=== PATIENT | female | born 1980 | race African-American/Black ===

== ENCOUNTER 2023-03-14 14:25 | Outpatient (CLI) | payer BC, MEDICAID, SELFPAY ==
--- NOTE | 2023-03-14 14:35 | ECG_ITS ---
Measurements Intervals [place] Rate: 66 P: 24 SC: 156 QRS: -6 QRSD: 77 T: 0 QT: 386 QTc: 407 Interpretive Statements SINUS RHYTHM VOLTAGE CRITERIA FOR LVH BORDERLINE R WAVE PROGRESSION, ANTERIOR LEADS BORDERLINE T WAVE ABNORMALITY- ANTERIOR LEADS BASELINE ARTIFACT- I, II, III, AVR, AVL, AVF BORDERLINE ECG NO PREVIOUS ECG AVAILABLE FOR COMPARISON Electronically Signed On 03-14-2023 16:25:19 EVENT MANAGEMENT CONSULTANT by Jonathan Jacobs D.O.
[2023-03-14 14:50] LABS: Hematocrit 36.1 % (37.0-47.0); Hemoglobin 10.6 g/dL (12.0-15.0); Mean Corpuscular HGB Conc 29.4 g/dl (32-36); Mean Corpuscular Hemoglobin 25.7 pg (26-34); Mean Corpuscular Volume 87.6 fl (80-100); Mean Platelet Volume 8.6 fl (7.4-10.4); Platelet Count Result 413 k/mm3 (150-375); Red Blood Count 4.12 M/mm3 (4.2-5.4); Red Cell Distribution Width 22.6 % (11.5-14.5)
== END 2023-03-14 14:26 | disposition home or self-care (01) ==
LOC: ANHSURGERY 14:30
PROVIDERS: PCP Internal Medicine; Visit Provider Obstetrics & Gynecology
DX: Z01.818 Encounter for other preprocedural examination (principal); I10 Essential (primary) hypertension; N85.2 Hypertrophy of uterus
CPT/HCPCS: 36415; 85027; 93005

== ENCOUNTER 2023-03-16 01:22 | Day surgery (SDC) | payer BC, MEDICAID, SELFPAY ==
[2023-03-06 10:35] VITALS: BMI 36.6
--- NOTE | 2023-03-06 10:45 | PC.NURSE ---
Report to the Outpatient Waiting Room, entrance under the green pavilion located off [facility], at time 06:00AM on date 03-16-23. Planned Procedure Time: 07:30AM. Time changes happen often and if your time is changed the preop area will call you the afternoon before. - You and your visitor will be asked to self-screen and do not enter if you have any COVID symptoms. - A mask is optional within the hospital at this time. Patients may have clear liquids (water, carbonated beverages, clear teas, apple juice) until 3 hours prior to surgery (04:30AM) with a maximum of 20 ounces. - No food from midnight until time of surgery Take the following medications with a SIP of water the morning of surgery: METOPROLOL DO NOT STOP ANY OF YOUR OTHER PRESCRIPTION MEDICATIONS PRIOR TO SURGERY ?EXCEPT THE FOLLOWING Medications to discontinue per physician IRON SUPPLEMENT Date to take last dose 03-12-23 Please no make-up, nail kinyarwanda, hairspray, perfume, deodorant, or body powder the day of surgery. No jewelry (including any body piercings) or valuables the day of surgery, leave them at home. Please take a shower or bath the night before, or the morning of, surgery with an antibacterial soap. Wear comfortable, loose fitting clothing. - Jewelry must be removed prior to entering the operating room. Rings and piercings that are not removed may be cut off. - The hospital will not accept responsibility for valuables. - Please leave all valuables, including medications, at home the day of surgery. If you are going home after surgery, a licensed pick up and delivery driver must drive you home. - NO public transportation without another adult if you receive anesthesia. - We recommend that an adult stay with you for 24 hours following discharge. - We also recommend that you do not drive, make important decision, drink alcoholic beverages, or take any drugs that were not prescribed by your health care provider for at least 24 hours after your discharge time. Follow any additional instructions given to you from your surgeon. If you or anyone in your household have experienced Covid symptoms in the past week, please notify your surgeon or the nurse liaison at the phone number below for possible testing. Telephone instructions given to PATIENT and asked if any additional questions and then verbalized understanding. Patient advised to call surgeon office or pre surgery nurse liaison [phone] if any additional questions.
[2023-03-16] VITALS (8 sets, daily range): BP systolic 140–168; BP diastolic 85–93; PULSE 58–73; RESP 18–21; TEMP 36.4; O2SAT 94–100
[2023-03-16] MEDS: ACETAMINOPHEN 500 MG TABLET 1000 MG PO (07:15)
[2023-03-16] MEDS: LACTATED RINGERS 1,000 ML 30 ML IV CONT (07:20)
--- NOTE | 2023-03-16 07:20 | WPDANESEPPF ---
Anes - Initial Pre Proc Eval Procedure: Operation Date: 03/16/23 08:15 Proposed Procedures p Hysteroscopy Dilation and Curettage Bre Endometrial Ablation - Kostas De MD s Laparoscopic Bilateral Salpingectomy - Kostas De MD Date/Time: 03/16/23 07:20 Surgeon: Kostas De MD Pre Op Diagnosis: uterine hypertrophy Patient Data Age: 42 Gender: F Height: 1.65 m Weight: 100 kg Allergies Allergy/AdvReac Type Severity Reaction Status Date / Time No Known Allergies Allergy Mild Verified 03/16/23 07:14 Home Medications Medication Instructions Recorded Confirmed Type metoprolol succinate 100 mg 100 mg PO DAILY 12/22/21 03/16/23 History tablet,extended release 24 hr losartan 100 mg tablet 50 mg PO DAILY 11/21/22 03/16/23 History norethindrone 1 mg-ethinyl 1 tablet PO DAILY #84 tabs 02/24/23 03/16/23 Rx estradiol 35 mcg tablet (Nortrel) Excedrin Migraine 2 caplet PO PRN PRN Migraine 03/06/23 03/16/23 History Headache ferrous sulfate 325 mg (65 mg 325 mg PO DAILY 03/06/23 03/16/23 History iron) tablet valacyclovir 500 mg tablet 500 mg PO Q12H PRN hsv 03/06/23 03/06/23 History (Valtrex) Patient hx anesthesia problems: none Family hx anesthesia problems: none Results Review: All pre-operative results and documents have been reviewed as part of the pre-operative evaluation. 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 Hypertension Migraines Screening mammogram, encounter for Uterine fibroid Surgical History Surgical History History of colposcopy with cervical biopsy 12/09/04 benign 07/08/10 benign History of elective 2000 2002 2006 Family History Family History Grandparent Diabetes mellitus maternal grandmother Hypertension maternal grandmother Mother Hypertension Social History Social History Smoking status: Never smoker Second hand tobacco smoke exposure: No Alcohol intake: never Substance use: never Substance use type: does not use Lack of Transportation: No Lack of Food: Never True Current Housing: I Have Housing Concerned About Future Housing: No Difficulty Paying Gas/Electric Bills: No Difficulty Paying for Meds: No Currently Unemployed: No Education: Trade/Vocational Certificate Difficulty w/ Childcare or Family Care: No Living arrangements: with family Additional living arrangements comments: single Occupation/Education: occupation Additional occupation/education comments: paraprofessional Gender identity (if verbalized by the patient): Female Sexual Orientation (if Verbalized by the Patient): Straight or Heterosexual Spiritual care concerns: No Anes - Eval Final PreProcedure Day of Procedure 03/16/23 07:20 Patient weight: obese Heart: regular rate and rhythm Lungs: clear to auscultation Airway: Mallampati scale class II Neurological: alert and oriented Last oral intake: >/= 8 hours ASA classification: III Emergent: no Anesthetic plan: proceed Anesthesia type and monitoring: general ETT and standard monitoring Results Review: All pre-operative results and documents have been reviewed as part of the pre-operative evaluation. Informed Consent: The patient's anesthetic plan and its attendant risks and benefits were discussed with the patient/family/POA. Questions were solicited and answers provided to the satisfaction of the patient/family/POA.
[2023-03-16] MEDS: KETOROLAC 15 MG/ML VIAL (*BKC) IV PUSH (07:23)
--- NOTE | 2023-03-16 07:25 | WPDHPUPDATE1 ---
History and Physical Update Update Date/Time: 03/16/23 07:25 History and Physical has been reviewed, including an updated exam of the patient. There are NO changes in the patient's condition. Risks, benefits, and alternatives have been discussed and questions answered. Patient agrees to proceed with procedure.
[2023-03-16] MEDS: ceFAZolin 2 GM/D5W 50 ML 2 GM/50 ML BAG IVPB (08:11)
--- NOTE | 2023-03-16 09:27 | P.OP_ITS ---
Procedure Note - Detailed Date of Procedure 03/16/23 Pre-op Diagnosis 1. Menometrorrhagia 2. Dysmenorrhea 3. Fibroid uterus 4. Undesired fertility Post-op Diagnosis Same Procedure Performed 1. Hysteroscopy with uterine curettings 2. Endometrial ablation 3. Laparoscopic bilateral salpingectomy Surgeon Kostas De MD Anesthesia General Findings Endometrial cavity enlarged and thickened tissue, no fibroids abutting cavity. Laparoscopic exam revealed ovaries without abnormality with enlarged multi fibro id uterus Description of Procedure Patient prepped and draped in usual manner for this procedure. Cervical instruments were placed for uterine mobility intention was placed the abdominal wall. Trocars were placed under direct visualization and instruments were placed as well. Tubes were identified and mesial salpinx was cauterized and cut with the Harmonic scalpel and there was no bleeding. Tubes were both removed, mesial salpinx area again inspected with no bleeding, gas was allowed to escape instruments removed and trocar sites were approximated use add for 0 Monocryl. Cervix was dilated to allow the hysteroscope to be placed which revealed thickened tissue and enlarged cavity though no fibroids penetrated into the cavity. Curettings were obtained and the Bre instrument was placed, cavity assessment performed, instrument activated. At this point after the cycle was performed patient was sent to recovery room in stable condition. Estimated Blood Loss -25.0 Urine Output -50.0 Drains No Packing No Pathology Yes Complications No immediate complications Condition Stable Disposition PACU [facility] Billing Surgery - Charge Forward: Surgery Billing
== END 2023-03-16 10:53 | disposition home or self-care (01) ==
PROVIDERS: PCP Internal Medicine; Visit Provider Obstetrics & Gynecology
PROC: 0U5B8ZZ Destruction of Endometrium, Via Natural or Artificial Opening Endoscopic (ICD-10-PCS; CPT 58563; principal; 2023-03-16 08:15)
PROC: (CPT 49320; 2023-03-16 08:15)
DX: N92.1 Excessive and frequent menstruation with irregular cycle (principal); N94.6 Dysmenorrhea, unspecified; Z30.2 Encounter for sterilization; I10 Essential (primary) hypertension; B00.9 Herpesviral infection, unspecified; E66.9 Obesity, unspecified; Z68.36 Body mass index [BMI] 36.0-36.9, adult
CPT/HCPCS: 58661; 58353; 88302; 88305; A9270; J0690; J1100; J1170; J1885; J2250; J2405; J2704; J3010; J7120

== ENCOUNTER 2024-08-05 07:47 | Outpatient (CLI) | payer OTHER, SELFPAY ==
--- NOTE | ~2024-08-05 | MM_ITS ---
EXAMINATION: MM screening [facility] BI w linda HISTORY: Baseline screening TECHNIQUE: Craniocaudal and mediolateral oblique 3-D tomosynthesis images were obtained and synthetic 2-D images were generated. CAD analysis was submitted and interpreted. COMPARISON: None BREAST PARENCHYMAL COMPOSITION: There are scattered areas of fibroglandular density. FINDINGS: Punctate and bulky calcifications are detected bilaterally, morphologically benign in appearance. Unremarkable parenchymal pattern without suspicious microcalcifications, architectural distortion, di screte masses or significant asymmetry. IMPRESSION: 1. No mammographic/tomographic evidence of malignancy. 2. Recommend routine screening mammography in one year. BI-RADS Category 2: Benign finding(s). Reviewed, dictated and finalized at location A.
== END 2024-08-05 07:48 | disposition home or self-care (01) ==
LOC: ANHIMG 07:49
PROVIDERS: PCP Internal Medicine; Visit Provider Student in an Organized Health Care Education/Training Program
DX: Z12.31 Encounter for screening mammogram for malignant neoplasm of breast (principal)
CPT/HCPCS: 77063; 77067

== ENCOUNTER 2024-08-19 10:19 | Outpatient (CLI) | payer OTHER, SELFPAY ==
--- NOTE | 2024-08-19 10:33 | ECG_ITS ---
Test Date: 2024-08-19 10:49:49 Measurements Intervals [place] Rate: 47 P: 32 CO: 181 QRS: -2 QRSD: 94 T: -8 QT: 425 QTc: 377 Interpretive Statements SINUS BRADYCARDIA LOW QRS VOLTAGE POOR R-WAVE PROGRESSION, CANNOT EXCLUDE PREVIOUS ANTERIOR INFARCTION NONSPECIFIC T-WAVE ABNORMALITY ABNORMAL ECG No previous ECG available for comparison Electronically Signed On 08-19-2024 15:45:08 CDT by Kerwin Neal M.D.
[2024-08-19 10:56] LABS: Hematocrit 37.5 % (37.0-47.0); Hemoglobin 11.8 g/dL (12.0-15.0); Mean Corpuscular HGB Conc 31.5 g/dl (32-36); Mean Corpuscular Hemoglobin 29.8 pg (26-34); Mean Corpuscular Volume 94.7 fl (80-100); Mean Platelet Volume 8.9 fl (7.4-10.4); Platelet Count Result 389 k/mm3 (150-375); Red Blood Count 3.96 M/mm3 (4.2-5.4); Red Cell Distribution Width 13.2 % (11.5-14.5); White Blood Count 4.2 K/mm3 (4.5-10.0)
--- OUTSIDE RECORDS SUMMARY | 2024-08-19 11:14 | XMS_ITS | Clinical Summary ---
Author Organization [facility] Address [address] [place] [address] Care Team Providers Care Antichecking Iron Worker Name Role Phone Wilder Lezama MD Primary Care Provider [phone] Source Comments [facility],non-owned Affiliates and Associated Physician Practices is amultiple site organization consisting of ambulatory clinics and hospital sitesin [place], [place], [place] and [place]. This disclosure is being madepursuant to the Care Everywhere program and may not contain all information available regarding this patient. Last updated 18.[facility] Allergies No known active allergies Medications * Be aware that medications may not be up to date on this document. Alwaysverify current medications with the patient. 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 Malaise and fatigue 04/01/2019 Lymphadenopathy 04/01/2019 Neoplasm of uncertain behavior of skin 9 Dermatofibroma of lower leg 09/21/2016 Acrochordon 06/30/2015 Mycosis fungoides, stage 1 06/30/2015 Skin eruption 03/20/2015 Immunizations Immunization Administration Dates Next Due INFLUENZA VACCINE 01/17/2019,03/31/2018 Family History Medical History Relation Name Comments Asthma Neg Hx CVA Neg Hx Cancer - Breast Neg Hx Cancer - Other Neg Hx Cancer - Skin, Melanoma Neg Hx Cancer - Skin, Non Melanoma Neg Hx Eczema Neg Hx Hemophilia Neg Hx Psoriasis Neg Hx Social History Tobacco Use Types Packs/Day Years Used Date Smoking Tobacco: Never Smokeless Tobacco: Never Tobacco Cessation:Counseling Given: Not Answered Comments Unknown Sex and Gender Information Value Date Recorded Sex Assigned at Not on file Legal Sex Female 1:22 AM CDT Gender Identity Not on file Sexual Orientation Not on file Last Filed Vital Signs Vital Sign Reading Time Taken Comments Blood Pressure 162/101 05/16/2021 12:55 AM MAGENTO DEVELOPER Pulse 61 05/16/2021 12:55 AM MAGENTO DEVELOPER Temperature 36.1 C (97 F) 05/15/2021 9:37 PM MAGENTO DEVELOPER Respiratory Rate 18 05/16/2021 12:55 AM MAGENTO DEVELOPER Oxygen Saturation 100% 05/16/2021 12:55 AM MAGENTO DEVELOPER Inhaled Oxygen Concentration - - Weight 99.8 kg (220 lb) 05/15/2021 9:37 PM MAGENTO DEVELOPER Height 165.1 cm (5' 5 ) 05/15/2021 9:37 PM MAGENTO DEVELOPER Body Mass Index 36.61 05/15/2021 9:37 PM MAGENTO DEVELOPER Plan of Treatment Health Maintenance Due Date Last Done Comments LIPID TESTING 1982 MAMMOGRAM 1982 HIV SCREENING 1997 HEPATITIS C SCREENING 12/19/2000 DTAP/TDAP/TD VACCINES (1 - Tdap) 2001 HEPATITIS B VACCINE (1 of 3 - 19+ 3-dose series) 2001 PAP with HPV 2012 COVID-19 VACCINE (3 - 2023- season) 2023 06/25/2020, 06/04/2020 DEPRESSION SCREENING 04/17/2024 INFLUENZA VACCINE (Season Ended) 2024 02/23/2021, 02/02/2020, 01/17/2019, Additional history exists ZOSTER VACCINE (1 of 2) 2032 HIB VACCINE Aged Out No longer eligi ble based on patient's age to complete this topic HPV VACCINE Aged Out No longer eligi ble based on patient's age to complete this topic MENINGOCOCCAL (Group B) VACCINE SHARED DECISION-MAKING Aged Out No longer eligible based on patient's age to complete this topic MENINGOCOCCAL GROUPS A/C/Y/W VACCINE Aged Out No longer eligible based on patient's age to complete this topic PNEUMOCOCCAL VACCINE Aged Out No long er eligible based on patient's age to complete this topic Insurance [place]ID - [place] [facility] MEDICAID - [facility] MEDICAID - [place] Care Teams Antichecking Iron Worker Relationship Specialty Start Date End Date Wilder Lezama MD [address] [place] [id number] PCP - General 08/21/17
--- OUTSIDE RECORDS SUMMARY | 2024-08-19 11:14 | XMS_ITS | Encounter Summary ---
Author Organization [facility] Address [address] [place] [address] Care Team Providers Care Back Hanger Name Role Phone Unavailable Primary Care Provider Unavailabl e Encounter Details Date Type Department Care Team (Late st Contact Info) Description 04/06/2018 Lab Requisition [facility] [address] [place] [place] [address] [place] [address] [address] [place] [address] Encounter for pre-employment examination Social History Tobacco Use Types Packs/Day Years Used Date Smoking Tobacco: Never Assessed Comments Unknown Sex and Gender Information Value Date Recorded Sex Assigned at Not on file Legal Sex Female 9:51 AM CHILD CARE ASSOCIATE TEACHER Gender Identity Not on file Sexual Orientation Not on file documented as of this encounter Plan of Treatment Not on file documented as of this encounter Procedures Procedure Name Priority Date/Time Associated Diagnosis Comments HEPATITIS B SURFACE AB, QUANT Routine 04/06/2018 10:00 AM CHILD CARE ASSOCIATE TEACHER Encounter for pre-employment examination RUBEOLA IGG Routine 04/06/2018 10:00 AM CHILD CARE ASSOCIATE TEACHER Encounter for pre-employment examination RUBELLA IGG Routine 04/06/2018 10:00 AM CHILD CARE ASSOCIATE TEACHER Encounter for pre-employment examination VARICELLA ZOSTER IGG Routine 04/06/2018 10:00 AM CHILD CARE ASSOCIATE TEACHER Encounter for pre-employment examination MUMPS IGG ANTIBODY Routine 04/06/2018 10 :00 AM CHILD CARE ASSOCIATE TEACHER Encounter for pre-employment examination documented in this encounter Results * VARICELLA ZOSTER IGG (04/06/2018 10:00 AM CHILD CARE ASSOCIATE TEACHER) VZV IGG Negative 04/09/2018 1:22 PM CHILD CARE ASSOCIATE TEACHER [facility] Comment: REFERENCE VALUE Vaccinated: Positive (>=1.1 AI) Unvaccinated: Negative (<=0.8 AI) VARICELLA IGG INDEX 0.6 04/09/2018 1:22 PM CHILD CARE ASSOCIATE TEACHER [facility] Comment: Test Performed by: [facility] [address] [employer], [place] [id number] Blood Collection / Unknown 04/06/2018 10:00 AM CHILD CARE ASSOCIATE TEACHER 04/06/2018 5:52 PM CHILD CARE ASSOCIATE TEACHER Forrest Reese MD CHEMISTRY ORDERABLES Final R esult [facility] * RUBELLA IGG (04/06/2018 10:00 AM CHILD CARE ASSOCIATE TEACHER) [facility] RUBELLA IGG IMMUNE Immune - Positive 04/06/2018 8:41 PM CHILD CARE ASSOCIATE TEACHER [facility] Blood Collection / Unknown 04/06/2018 10:00 AM CHILD CARE ASSOCIATE TEACHER 04/06/2018 5:52 PM CHILD CARE ASSOCIATE TEACHER Narrative [facility] - 04/06/2018 8:41 PM CHILD CARE ASSOCIATE TEACHER A positive result suggests response to immunization or prior exposure to the virus. Forrest Reese MD CHEMISTRY ORDERABLES Final R esult [facility] CLIA# [id number] [place] [address] * MUMPS IGG ANTIBODY (04/06/2018 10:00 AM CHILD CARE ASSOCIATE TEACHER) Pathologist [facility] MUMPS IGG AB Equivocal 04/09/2018 1:22 PM [facility] Comment: Recommend follow-up testing in 10-14 days if clinically indicated. REFERENCE VALUE Vaccinated: Positive (>=1.1 AI) Unvaccinated: Negative (<=0.8 AI) MUMPS IGG INDEX 1.0 8 1:22 PM [facility] Comment: Test Performed by: [address] [id number] Blood Collection / Unknown 04/06/2018 10:00 AM CHILD CARE ASSOCIATE TEACHER 04/06/2018 5:52 PM [facility] Forrest Reese MD CHEMISTRY ORDERABLES Final R [place] Performing Organization Address [facility] Co de Phone Number [facility] * RUBEOLA IGG (04/06/2018 10:00 AM [facility]) RUBEOLA IGG Positive 04/09/2018 1:22 PM [facility] Comment: Results suggest response to immunization or prior exposure to the virus. REFERENCE VALUE Vaccinated: Positive (>=1.1 AI) Unvaccinated: Negative (<=0.8 AI) RUBEOLA IGG INDEX 3.6 04/09/2018 1:22 PM [facility] Comment: Test Performed by: [address] [id number] Blood Collection / Unknown 04/06/2018 10:00 AM CHILD CARE ASSOCIATE TEACHER 04/06/2018 5:52 PM [facility] Forrest Reese MD CHEMISTRY ORDERABLES Final R esult Performing Organization Address [facility] Co de Phone Number [facility] * (ABNORMAL) HEPATITIS B SURFACE AB, QUANT (04/06/2018 10:00 AM CHILD CARE ASSOCIATE TEACHER) HEPATITIS B SURF AB,QN <4.0 mlU/mL 04/06/2018 8:09 PM [facility] HEPATITIS B SURFACE AB INTERP Non-reacti ve(A) See Interp 04/06/2018 8:09 PM [facility] Blood Collection / Unknown 04/06/2018 10:00 AM CHILD CARE ASSOCIATE TEACHER 04/06/2018 5:52 PM CHILD CARE ASSOCIATE TEACHER Narrative [facility] - 04/06/2018 8:09 PM CHILD CARE ASSOCIATE TEACHER Patient does not have immunity to Hepatitis B virus. This assay is used to determine immune status to Hepatitis B as greater than or equal to 10 mIU/mL as per CDC guidelines (MMWR:vol 55: RR-16, 2006). Forrest Reese MD CHEMISTRY ORDERABLES Final R esult [facility]# [id number] [address] [place] [address] documented in this encounter Visit Diagnoses Diagnosis Encounter for pre-employment examination Health examination of defined subpopulation documented in this encounter
--- OUTSIDE RECORDS SUMMARY | 2024-08-19 11:14 | XMS_ITS | Clinical Summary ---
Author Organization [facility] Address [address] [place] [phone] Phone Care Team Providers Care Chiropractor Sole Practitioner Name Role Phone Unavailable Primary Care Provider Unavailabl e Immunizations Immunization Administration Dates Next Due (PFIZER)(12 YR UP) COVID-19 VACCINE - EMERGENCY USE AUTHORIZATION, MRNA, [id number](PF) 30 MCG/0.3 ML IM SUSP 06/25/2020,06/04/2020 Influenza Seasonal Unspecified Formulation IM ,02/02/2020 Social History Tobacco Use Types Packs/Day Years Used Date Smoking Tobacco: Never Assessed Comments Unknown Sex and Gender Information Value Date Recorded Sex Assigned at Not on file Legal Sex Female 9:51 AM LAB TECH Gender Identity Not on file Sexual Orientation Not on file Plan of Treatment Health Maintenance Due Date Last Done Comments DTAP/TDAP/TD VACCINES (1 - Tdap) 2001 HEPATITIS B VACCINES (1 of 3 - 19+ 3-dose series) 2001 HPV/Cotest (21-29) 12/25/2003 CERVICAL CANCER SCREENING 2012 HPV/Cotest (30-65) 2012 PAP SMEAR 2012 BREAST CANCER SCREENING 2022 COVID-19 Vaccine (3 - 2023- season) 2023 06/25/2020, 06/04/2020 INFLUENZA VACCINE Completed 02/26/2024, 02/02/2020 HPV VACCINES Aged Out No longer eligi ble based on patient's age to complete this topic Insurance [place]
--- OUTSIDE RECORDS SUMMARY | 2024-08-19 11:14 | XMS_ITS | CONTINUITY OF CARE DOCUMENT ---
Author Name [facility] Address Unknown Organization [facility] Address [address] [place] [address] Phone [phone] Care Team Providers Care Emergency Room Clerk Name Role Phone Kamran Easton MD Unavailable Kamran Easton MD Unavailable WANG CURTIS MD Unavailable [phone] INSURANCE PROVIDERS Payer name Policy type / Coverage type [place] red democrat [employer] Medicaid 0 [id number] [facility] [id number]
--- OUTSIDE RECORDS SUMMARY | 2024-08-19 11:14 | XMS_ITS | Clinical Summary ---
Author Organization [facility] Address [address] [place] [address] Phone Care Team Providers Care Skin Care Specialist Name Role Phone Caro Paige MD Unavailable [phone] Chaparrita Queen MD Primary Care Provider Allergies No known active allergies Medications losartan (COZAAR) 50 MG Tablet Take 1 Tablet by mouth 2 times daily. 02/23/2019 Active metoprolol tartrate (LOPRESSOR) 100 MG Tablet Take 1 Tablet by mouth 2 times daily. 03/19/2024 Active trospium (SANCTURA) 20 MG Tablet Take 1 Tablet by mouth twice a day. 60 Tablet 3 04/05/2024 Active dilTIAZem (CARDIZEM CD) 120 MG CAPSULE SR 24 HR Take 120 mg by mouth daily. 04/25/2024 Active Mirabegron ER 50 MG TABLET SR 24 HR Take 50 mg by mouth daily for 120 days. 30 Tablet 3 05/17/2024 Active trospium (SANCTURA) 20 MG Tablet Take 1 Tablet by mouth 2 times daily. 180 Tablet 3 07/12/2024 Active Encounters Date Type Department Care Team Description 07/12/2024 2:30 PM CDT Office Visit [facility] [address] [place] [address] Caro Paige MD OAB (overactive bladder) (Primary Dx) Discharge Disposition: Discharged to home or Selfcare 07/11/2024 Travel from Last 3 Months Social History Tobacco Use Types Packs/Day Years Used Date Smoking Tobacco: Never Smokeless Tobacco: Never Tobacco Cessation:Counseling Given: Not Answered Alcohol Use Standard Drinks/Week Comments Not Currently 0 (1 standard drink = 0.6 oz pur e alcohol) Comments No Sex and Gender Information Value Date Recorded Sex Assigned at Not on file Legal Sex Female 9:24 AM ENTERTAINMENT REPORTER Gender Identity Not on file Sexual Orientation Not on file Last Filed Vital Signs Vital Sign Reading Time Taken Comments Blood Pressure 141/88 07/12/2024 2:48 PM CDT Pulse 58 07/12/2024 2:48 PM CDT Temperature - - Respiratory Rate 20 07/12/2024 2:48 PM CDT Oxygen Saturation 98% 07/12/2024 2:48 PM CDT Inhaled Oxygen Concentration - - Weight 102.1 kg (225 lb) 07/12/2024 2:48 PM CDT Height 165.1 cm (5' 5 ) 07/12/2024 2:48 PM CDT Body Mass Index 37.44 07/12/2024 2:48 PM CDT Plan of Treatment Upcoming Encounters Date Type Department Care Team (Late st Contact Info) Description 10/25/2024 1:45 PM CDT Office Visit [facility] [address] [place] [address] Caro Paige MD [id number] [address] Health Maintenance Due Date Last Done Comments Hepatitis C Virus (HCV) Screening 1982 Mammogram 1982 TdaP Immunization 1982 Hepatitis B Immunization (1 of 3 - 19+ 3-dose series) 2001 Pap Smear 12/25/2003 Cervical Cancer Screening (CCS) 2012 HPV/Cotest 2012 Discussion re Starting/Frequency of Mammograms 2022 SARS-COV-2 Immunization ( - season) 2023 06/25/2020, 06/04/2020 Respiratory Syncytial Virus (RSV) Immunization (Adult) (1 - 1-dose 75+ series) 2057 Influenza Immunization Completed 4, 02/14/2022, 02/23/2021, Additional history exists Meningococcal Immunization (ACWY) Aged Out No longer eligible based on patient's age to complete this topic Pneumococcal Immunization Combined Aged Out No longer eligible based on patient's age to complete this topic Rotavirus Immunization Aged Out No lo nger eligible based on patient's age to complete this topic Insurance MEDICAID [place] Care Teams Skin Care Specialist Relationship Specialty Start Date End Date Chaparrita Queen MD [address] [place] [address] PCP - General Primary Care 04/05/24 Caro Paige MD [address] [address] Consulting Physician Urology 04/03/24
--- OUTSIDE RECORDS SUMMARY | 2024-08-19 11:14 | XMS_ITS ---
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 Past Treatment and Therapy Plans No past plan information found. Lifetime Dose Tracking * Chemical Lifetime Dose Automatic Entry Manual Entr y Dose Length Product 1,013 mGy-cm 1,013 mGy-cm 0 mGy-cm
--- OUTSIDE RECORDS SUMMARY | 2024-08-19 11:15 | XMS_ITS | Data Portability ---
Author Organization [facility] OLGAJoni Lantigua Address [address] [place] [address] Care Team Providers Care Manager Lsw Name Role Phone CHAPARRITA QUEEN Primary Care Provider Assessment No assessment recorded. Plan of Treatment Reminders Order Date Submit Date Provider Last Modified By Organization Details Last Modified Time Details Appointments None recorded. Lab CBC 2023 024 [facility], [address] [place] [address], [address], [place], [address], 4 06:18:32 Referral None recorded. Procedures None recorded. Surgeries None recorded. Imaging None recorded. Medication Orders diltiazem CD 120 mg capsule,ext ended release 24 hr [address] [facility] [address] [facility], [address] [place] [address], [id number], 5 18:02:57 diltiazem CD 120 mg capsule,ext ended release 24 hr [address] [facility], [address] [place] [address], [id number], 5 18:02:57 metoprolol tartrate 100 mg tablet 2024 025 [facility], [address] [place] [address], [id number], 5 16:35:15 losartan 50 mg tablet 2023 025 [facility], [address] [place], [address], 16:31:43 ferrous sulfate 325 mg (65 mg iron) tablet 2023 [facility], [address] [place] [address], [address], 12:32:57 docusate sodium 100 mg capsule 2023 [facility], [address] [place] [address], [id number], 12:32:56 Patient TargetsNo targets recorded. Patient Instructions Encounter Date Encounter Id Patient Instructions Last Modified By Organization Details Last Modified Time 02/27/2024 [id number] learning about high white blood cell counts [email or web address] Not available 02/27/2024 12:32:52 learning about high blood pressure [email or web address] Not available 02/27/2024 12:32:51 uterine fibroids : care instructions [email or web address] Not available 02/27/2024 12:32:52 iron deficiency anemia: care instructions [email or web address] Not available 02/27/2024 12:32:52 03/25/2024 [id number] learning about high blood pressure [email or web address] Not available 03/26/2024 18:13:51 04/25/2024 [id number] learning about high blood pressure [email or web address] Not available 04/25/2024 16:34:52 When You Want to Lose Weight: Care Instructions [email or web address] Not available 04/25/2024 16:34:52 06/17/2024 [id number] When You Want to Lose Weight: Care Instructions Not available 06/17/2024 18:15:47 A healthy lifestyle: care instructions [email or web address] Not available 06/17/2024 18:15:47 learning about high blood pressure [email or web address] Not available 06/17/2024 18:14:41 Reason for Referral None Reported. Results Created Date Observation Date Name Description Value Unit Range Abnormal Flag Note LastModifiedBy Organization Detail LastModifiedTime 02/26/20 24 02/26/2024 pap, IG + HR HPV Pap,thinprep ,HPV negati ve Not Available Not Available 15:02:19 03/25/20 24 03/26/2024 CBC, PLATE LET, NO DIFFE RENTI AL WBC 5.4 x10e3 /uL 3.4-10 .8 Not Available [facility] ([facility]) [address] [facility], [place], [address], 03/26/2024 06:18:32 03/25/20 24 03/26/2024 CBC, PLATE LET, NO DIFFE RENTI AL RBC 3.80 x10e6 /uL 3.77-5 .28 Not Available [facility] ([facility]) [address] [facility], [place], [address], 03/26/2024 06:18:32 03/25/20 24 03/26/2024 CBC, PLATE LET, NO DIFFE RENTI AL hemoglobin 10.0 g/dL 11.1-1 5.9 below low normal Not Available [facility] ([facility]) [address] [facility], [place], [address], 03/26/2024 06:18:32 03/25/20 24 03/26/2024 CBC, PLATE LET, NO DIFFE RENTI AL hematocrit 32.7 % 34.0-4 6.6 below low normal Not Available [facility] ([facility]) [address] [facility], [place], [address], 03/26/2024 06:18:32 03/25/20 24 03/26/2024 CBC, PLATE LET, NO DIFFE RENTI AL MCV 86 fL 79-97 Not Available [facility] ([facility]) [address] [place], [address], 03/26/2024 06:18:32 03/25/20 24 03/26/2024 CBC, PLATE LET, NO DIFFE RENTI AL MCH 26.3 pg 26.6-3 3.0 below low normal Not Available [facility] ([facility]) [address] [facility], [place], [address], 03/26/2024 06:18:32 03/25/20 24 03/26/2024 CBC, PLATE LET, NO DIFFE RENTI AL MCHC 30.6 g/dL 31.5-3 5.7 below low normal Not Available [facility] ([facility]) [address] [facility], [place], [address], 03/26/2024 06:18:32 03/25/20 24 03/26/2024 CBC, PLATE LET, NO DIFFE RENTI AL RDW 18.4 % 11.7-1 5.4 above high normal Not Available [facility] ([facility]) [address] [facility], [place], [address], 03/26/2024 06:18:32 03/25/20 24 03/26/2024 CBC, PLATE LET, NO DIFFE RENTI AL platelets 422 x10e3 /uL 150-45 0 Not Available [facility] ([facility]) [address] [facility], [place], [address], 03/26/2024 06:18:32 08/06/19 25 08/05/2024 MAMMO , scree inna, digit al, bilat eral No observ ation record ed. [place] [address], [place], [address], 08/05/2024 17:03:20 Result Notes None recorded. Problems Name Problem SNOMED Code Status Onset Date Resolution Date Notes Provider Name and Address Organization Details Recorded Time Essential hypertension 54519731 Active 2023 Chaparrita Queen MD Attn: Accounting ,[address] [facility] [facility], [place], [address] , [facility] 04:48:06 Iron deficiency anemia 57189818 Active 2023 Chaparrita Queen MD Attn: Accounting ,[address] [facility], [place], [address] , [place] - [facility] 4 12:29:31 Uterine leiomyoma 11872236 Active 2023 Chaparrita Queen MD Attn: Accounting ,[address] [facility], [place], [address] , [place] - [facility] 4 12:30:27 Leukocytosis 524258784 Active 2023 Chaparrita Qeuen MD Attn: Accounting ,[address] [facility], [place], [address] , [place] - [facility] 4 12:32:14 Morbid obesity 519977462 Active 2024 Chaparrita Queen MD Attn: Accounting ,[address] [facility], [place], [address] , [place] - [facility] 5 16:28:40 Pre-surgery evaluation Active 2024 Chaparrita Queen MD Attn: Accounting ,[address] [facility], [place], [address] , [place] - [facility] 5 18:14:09 Migraine 76332287 Active Not Available [facility] 3 06:47:52 Disorder of skin 44346055 Active Not Available [facility] 3 06:47:52 Ankle edema 88311662 Active Not Available [facility] 3 06:47:52 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 Please review these documents and add these problems to the patient's chart manually as needed. Problem Notes None recorded. Procedures Surgical History None recorded. Imaging Results Imaging Date Name Status LastModified by [facility] Details LastModified Time 08/05/2024 MAMMO, screening, digital, bilateral completed [place] [address], [place], [address], 08/05/2024 17:03:20 Procedure Notes None recorded. Medical Equipment None Reported. Allergies No known drug allergies Medications Name Sig Start Date Stop Date Status Note LastModified by Organization Details LastModified Time Prescriptio n - Prior Authorizati on Request active Not Available Not Available N ot Available losartan 50 mg tablet Take 1 tablet twice a day by oral route. 04/25 completed Not Available Not Available Not Available amoxicillin 500 mg capsule TAKE 1 CAPSULE BY MOUTH EVERY 8 HOURS UNTIL GONE 02/26 completed Not Available Not Available Not Available butalbital- acetaminoph en-caffeine 50 mg-325 mg-40 mg capsule TAKE 1 CAPSULE BY MOUTH ONCE DAILY NEEDED 12/31 completed Not Available Not Available Not Available acetaminoph en 325 mg tablet take two tablets by mouth daily as needed. PRN active Not Available Not Available No t Available prednisone 10 mg tablet 04/26 completed Not Available Not Available Not Available azithromyci n 250 mg tablet TAKE 2 TABLETS BY MOUTH ON DAY 1, AND THEN TAKE 1 TABLET BY MOUTH ONCE A DAY ON DAY 2 THROUGH DAY 5 04/26 completed Not Available Not Available Not Available metoprolol tartrate 100 mg tablet TAKE 1 TABLET BY MOUTH TWICE DAILY active Not Available Not Available No t Available fluconazole 150 mg tablet 08/03 completed Not Available Not Available Not Available valacyclovi r 1 gram tablet 01/02 completed Not Available Not Available Not Available sumatriptan 100 mg tablet Take 1 tablet as needed by oral route for 9 days. 03/02 completed Not Available Not Available Not Available tolterodine ER 4 mg capsule,ext ended release 24 hr TAKE 1 CAPSULE BY MOUTH ONCE DAILY active Not Available Not Available No t Available hydrocodone 5 mg-acetamin ophen 325 mg tablet TAKE 1 TABLET BY MOUTH EVERY 4 HOURS NEEDED FOR PAIN 11/14 completed Not Available Not Available Not Available metronidazo le 0.75 % (37.5 mg/5 gram) vaginal gel 03/02 completed Not Available Not Available Not Available Tubersol 5 tub. unit/0.1 mL intradermal injection solution Administe r .1ml interderm ally 12/31 completed Not Available Not Available Not Available butalbital 50 mg-acetamin ophen 325 mg tablet TAKE 1 CAPSULE BY MOUTH ONCE DAILY NEEDED 12/31 completed Not Available Not Available Not Available metronidazo le 500 mg tablet TAKE 1 TABLET BY MOUTH EVERY 12 HOURS active Not Available Not Available No t Available valacyclovi r 500 mg tablet TAKE 1 TABLET BY MOUTH EVERY 12 HOURS NEEDED FOR 7 DAYS active Not Available Not Available No t Available sulfamethox azole 800 mg-trimetho prim 160 mg tablet TAKE 1 TABLET BY MOUTH EVERY 12 HOURS 02/26 completed Not Available Not Available Not Available butalbital- acetaminoph en-caffeine 50 mg-325 mg-40 mg tablet TAKE 1 TABLET BY MOUTH ONCE DAILY NEEDED FOR 30 DAYS 02/26 completed Not Available Not Available Not Available amoxicillin 875 mg tablet 05/29 completed Not Available Not Available Not Available triamcinolo ne acetonide 0.025 % topical cream 12/07 completed Not Available Not Available Not Available phenazopyri dine 100 mg tablet 08/03 completed Not Available Not Available Not Available cephalexin 500 mg capsule 03/02 completed Not Available Not Available Not Available pantoprazol e 40 mg tablet,enrique yed release TAKE 1 TABLET BY MOUTH ONCE DAILY BEFORE MEAL(S) 04/26 completed Not Available Not Available Not Available Nortrel 1/35 (21) 1 mg-35 mcg tablet 03/02 completed Not Available Not Available Not Available oseltamivir 75 mg capsule 04/26 completed Not Available Not Available Not Available butalbital 50 mg-acetamin ophen 325 mg-caffeine 40 mg-codeine 30 mg cap TAKE 1 CAPSULE BY MOUTH ONCE DAILY NEEDED 09/03 completed Not Available Not Available Not Available metoprolol tartrate 50 mg tablet TAKE 1 TABLET BY MOUTH TWICE DAILY 04/26 completed Not Available Not Available Not Available butalbital- aspirin-caf feine 50 mg-325 mg-40 mg capsule 03/02 completed Not Available Not Available Not Available docusate sodium 100 mg capsule Take 1 capsule every day by oral route. 2023 active Not Available Not Available Not Avai lable diltiazem CD 120 mg capsule,ext ended release 24 hr TAKE 1 CAPSULE BY MOUTH TWICE DAILY 07/16 completed Not Available Not Available Not Available Cartia XT 240 mg capsule,ext ended release TAKE 1 CAPSULE BY MOUTH ONCE DAILY active Not Available Not Available No t Available furosemide 20 mg tablet Take 1 tablet every day by oral route as needed for 30 days. active Not Available Not Available No t Available ibuprofen 600 mg tablet TAKE 1 TABLET BY MOUTH EVERY 6 HOURS NEEDED FOR PAIN active Not Available Not Available No t Available cefdinir 300 mg capsule TAKE 1 CAPSULE BY MOUTH TWICE DAILY 02/26 completed Not Available Not Available Not Available losartan 100 mg tablet TAKE 1 TABLET BY MOUTH ONCE DAILY DIRECTED 04/26 completed Not Available Not Available Not Available amoxicillin 500 mg-potassiu m clavulanate 125 mg tablet Take 1 tablet every 12 hours by oral route after meals for 10 days. 12/07 completed Not Available Not Available Not Available azithromyci n 500 mg tablet TAKE BOTH TABS BY MOUTH NOW A 1 TIME DOSE 08/14 completed Not Available Not Available Not Available nitrofurant oin monohydrate /macrocryst als 100 mg capsule 08/03 completed Not Available Not Available Not Available lactulose 10 gram/15 mL oral solution Take 15 mL every day by oral route as needed for 30 days. 04/26 completed Not Available Not Available Not Available ProAir HFA 90 mcg/actuati on aerosol inhaler active Not Available Not Available Not Available FeroSul 325 mg (65 mg iron) tablet TAKE 1 TABLET BY MOUTH TWICE DAILY active Not Available Not Available No t Available butalbital- acetaminoph en-caffeine 50 mg-300 mg-40 mg capsule Take 1 capsule every day by oral route as needed for 30 days. 05/28 completed Not Available Not Available Not Available Nexplanon 68 mg subdermal implant 03/02 completed Not Available Not Available Not Available Dasetta (28) 1 mg-35 mcg tablet TAKE 1 TABLET BY MOUTH ONCE DAILY active Not Available Not Available No t Available mirabegron ER 50 mg tablet,exte nded release 24 hr TAKE 1 TABLET BY MOUTH ONCE DAILY active Not Available Not Available No t Available Jencycla 0.35 mg tablet TAKE 1 TABLET BY MOUTH ONCE DAILY 04/26 completed Not Available Not Available Not Available Virtussin AC 10 mg-100 mg/5 mL oral liquid Take 10 mL every 4 hours by oral route as directed for 5 days. 12/07 completed Not Available Not Available Not Available Vitals Date Recorded Body height Body mass index (BMI) Body weight Heart rate Oxygen saturation Oxygen saturation in Arterial blood by Pulse oximetry Systolic blood pressure Diastolic blood pressure Provider Name and Address Organization Details Last Updated DateTime 4 162.56 cm 37.2 kg/m2 37451.5 4 g 66 /min 99 % 99 % 163 mm[Hg] 93 mm[Hg] Janet Caballero MA [facility] 4 11:58:47 Date Recorded Body height Oxygen saturation Oxygen saturation in Arterial blood by Pulse oximetry Heart rate Systolic blood pressure Diastolic blood pressure Provider Name and Address Organization Details Last Updated DateTime 4 162.56 cm 99 % 99 % 56 /min 165 mm[Hg] 109 mm[Hg] Janet Caballero MA [facility] 4 16:38:50 Date Recorded Body height Body mass index (BMI) Body weight Heart rate Oxygen saturation Oxygen saturation in Arterial blood by Pulse oximetry Systolic blood pressure Diastolic blood pressure Provider Name and Address Organization Details Last Updated DateTime 5 162.56 cm 37.6 kg/m2 02676.8 7 g 70 /min 98 % 98 % 163 mm[Hg] 103 mm[Hg] Janet Caballero MA [facility] 5 15:54:13 Date Recorded Body height Body mass index (BMI) Body weight Oxygen saturation Oxygen saturation in Arterial blood by Pulse oximetry Heart rate Systolic blood pressure Diastolic blood pressure Provider Name and Address Organization Details Last Updated DateTime 5 162.56 cm 38.4 kg/m2 950417. 69 g 99 % 99 % 65 /min 166 mm[Hg] 90 mm[Hg] Janet Caballero MA [facility] 5 17:10:33 Date Recorded Body height Systolic blood pressure Diastolic blood pressure Systolic blood pressure Diastolic blood pressure Provider Name and Address Organization Details Last Updated DateTime 5 162.56 cm 156 mm[Hg] 90 mm[Hg] 150 mm[Hg] 100 mm[Hg] Julianna Bunch MA [facility] 5 16:36:06 Social History Question Answer Notes LastModified by Organizat ion Details LastModified Time Tobacco Smoking Status Never Smoker Chaparro Fallon MA null, [facility] 09/30/2020 10:35:33 What Is Your Level Of Alcohol Consumption? Occasional Information not available 09/30/2020 What Was The Date Of Your Most Recent Tobacco Screening? 06/17/2024 Information not available 06/17/2024 Do You Use Any Illicit Or Recreational Drugs? No Information not available 02/27/2024 Has Tobacco Cessation Counseling Been Provided? No Information not available 09/30/2020 Do You Or Have You Ever Used Any Other Forms Of Tobacco Or Nicotine? No Information not available 09/30/2020 Sex: Unknown Functional Status None recorded. Mental Status None recorded. Family History Nothing Reported. Medical History Condition Response Coronary Artery Disease N Other N Atrial Fibrillation N High Blood Pressure Y Depression N COPD N Blood Clots N Anxiety Disorder N Muscle, Joint, or Bone Problems N Acid Reflux (GERD) N Cancer N Stroke N High Cholesterol N Liver Disease N Headaches N Kidney or Bladder Problems N Thyroid Problems N GI Problems N Have you had a mammogram in the last yea r? N Skin Problems Y Anemia N Heart Attack (SC) N Diabetes N Seizures/Epilepsy N Have you had a colonoscopy in the last 1 0 years? N Asthma N Allergies N Have you had a PSA blood test in the las t year? N Hepatitis N Heart Failure N Osteoporosis N Gynecological History Statement/Question Response Date of LMP 12/13/2022 Obstetrics History GPAL:G 0 P 0 0 0 0 Immunizations Vaccine Type Date Status Note Provider [place] e and Address Organization Details Recorded Time MMR 3 completed Janet Caballero [place], [place] [facility] 04/25/2024 15:42:21 MMR 7 juanita Caball[place] [facility] 04/25/2024 15:42:21 DTP 7 juanita Caball[place] [facility] 04/25/2024 15:42:21 DTP 5 completed Janet Caball[place] [facility] 04/25/2024 15:42:21 DTP 5 ju[place]ita Caball[place] [facility] 04/25/2024 15:42:21 OPV 5 completed JEFFREY [place] [facility] 04/25/2024 15:42:21 OPV 8 completed [place] [facility] 04/25/2024 15:42:21 OPV 5 [place] [facility] 04/25/2024 15:42:21 Td (adult), 2 Lf tetanus toxoid, preservative free, adsorbed 8 completed JE[place] [facility] 04/25/2024 15:42:21 Td (adult), 2 Lf tetanus toxoid, preservative free, adsorbed 8 completed [place] [facility] 04/25/2024 15:42:21 Influenza, split virus, quadrivalent, PF 2 completed [place] [facility] 04/25/2024 15:42:21 Influenza, split virus, quadrivalent, PF 1 [place] [facility] 04/25/2024 15:42:21 COVID-19, mRNA, LNP-S, PF, 30 mcg/0.3 mL dose 1 completed [place] [facility] 04/25/2024 15:43:08 COVID-19, mRNA, LNP-S, PF, 30 mcg/0.3 mL dose 1 completed [place] [facility] 04/25/2024 15:43:08 influenza, unspecified formulation 9 completed [place] [facility] 04/25/2024 15:43:08 influenza, unspecified formulation 8 completed [place] [facility] 04/25/2024 15:43:08 Past Encounters Encounter ID Performer Location Encounter Start Date Encounter Closed Date Diagnosis/Indication Diagnosis SNOMED-CT Code Diagnosis ICD10 Code Diagnosis Note [id number] MD Jaxson Quinteros (Adult Med) [address] [place] [address] 12/08/2014 11:56:57 12/08/2014 12:34:16 Migraine 21366495 Disorder of skin 57600274 discolorat ion of arms for 6 years. Ankle edema 93091974 [id number] MD Jaxson Quinteros (Adult Med) [address] [place] [id number] 05/22/2015 16:12:18 05/22/2015 16:54:11 Migraine 47729246 G43.909 Patch/plaq ue stage mycosis fungoides 443857994 C84.00 [id number] MD Jaxson Quinteros (Adult Med) [address] [place] [phone] 04/07/2016 09:53:02 04/07/2016 16:27:05 History of hypertension 479832701 Z86.79 [id number] [facility] [address] [place] [phone] 03/02/2017 12:03:40 03/02/2017 13:24:43 Adult health examination 507874889 Z00.00 [id number] MD Jaxson Quinteros (Adult Med) [address] [place] [id number] 0 08/03/2017 16:17:25 08/03/2017 17:26:36 Acute bronchitis 81623813 J20.9 Go to ER any time for any concern she understood and agreed. Acute sinusitis 29777822 J01.90 Acute pharyngitis 160102 003 J02.9 [id number] MD Jaxson Quinteros (Adult Med) [address] [place] [phone] 12/07/2017 09:33:06 12/12/2017 09:46:26 Migraine 95812864 G43.909 The medication prescribed below is not scheduled, according to [facility]. [id number] MD Jaxson Quinteros (Adult Med) [address] [place] [phone] 0 05/22/2018 15:38:30 05/23/2018 09:18:56 Migraine 78315633 G43.909 The medication prescribed below is not scheduled, according to [facility]. [id number] Wilder Lezama MD [facility] (Adult Med) [address] [place] [id number] 0 01/02/2019 17:24:41 01/03/2019 09:20:48 Essential hypertension 49949747 I10 Low salt diet.Discu ssed with patient, went to ER for hypertensi on, but bnerve got medication . [id number] MD Jaxson Quinteros (Adult Med) [address] [place] [id number] 0 05/29/2019 16:20:08 05/30/2019 10:51:15 Essential hypertension 88373349 I10 Low salt diet.Discu ssed with patient, went to ER for hypertensi on, but bnerve got medication . Migraine 34531424 G43.90 9 The medication prescribed below is not scheduled, according to [facility]. Tuberculos is screening 518257450 Z11.1 [id number] Wilder Lezama MD [facility] (Adult Med) [address] [place] [id number] 01/01/2020 08:06:53 01/09/2020 09:43:23 Migraine 75844220 G43.909 The medication prescribed below is not scheduled, according to [facility]. Essential hypertension 55259264 I10 Low salt diet.Discu ssed with patient, went to ER for hypertensi on, but bnerve got medication . [id number] [facility] [address] [place] [id number] 0 08/14/2020 08:19:58 08/17/2020 10:42:00 Essential hypertension 40421544 I10 Low salt diet.Discu ssed with patient, went to ER for hypertensi on, but nerve got medication . Indigestion 180107143 K3 0 Discussed with patient, willing to try medication as ordered. possible acid reflux. Non-cardia c chest pain 901319326 R07.89 To continue to observe, and advised her to go to closer ER any time for any concern. She agreed. Migraine 91641773 G43.90 9 The medication prescribed below is not scheduled, according to [facility]. Has enough butabital. Disorder of skin 5431173 5 L98.9 Under the care of her dermatolog y. [id number] MD Jaxson Quinteros (Adult Med) [address] [place] [id number] 09/30/2020 10:18:55 10/02/2020 21:54:04 Adult health examination 859360741 Z00.00 Normal PE, over weight, encourage her to be on low salt diet, exercise regularly and lose some weight, she also agreed for the blood benjamin t for TB screening, . [id number] MD Jaxson Quinteros (Adult Med) [address] [place] [id number] 0 03/08/2021 11:39:34 03/09/2021 11:01:53 Knee joint painful on movement 184995288 M25.569 She agreed for the x ray and referral. Pain of le ft ankle joint 1888259608 9706927 M25.572 She agreed for the referral and x ray. Chronic constipation 236 666875 K59.09 On no medication . will try some medication . she agreed, Hypertensive disorder 38 806287 I10 Ran out the medication s. will resume, and monitor blood pressure. Avoid NSAID or OTC decongesta nt, on low salt diet.Blood pressure 156/140 mm Hg. [id number] MD Jaxson Quinteros (Adult Med) [address] [place] [address] [phone] 0 05/18/2021 15:50:01 05/19/2021 11:47:14 Hypertensive disorder 85252932 I10 Ran out the medication s. will resume, and monitor blood pressure. Avoid NSAID or OTC decongesta nt, on low salt diet.Blood pressure 156/140 mm Hg. Discussed with patient, today 05-18-2021 , she agreed to have higher dose of current medication s and monitoring blood pressure at home, also she can go to ER any time for any concern [id number] MD Jaxson Quinteros (Adult Med) [address] [place] [address] [phone] 06/30/2021 16:56:30 07/01/2021 09:48:58 Acute respiratory infections 364599720 J22 She agreed for the empirical ABS treatment. [id number] MD Jaxson Quinteros (Adult Med) [address] [place] [id number] 0 04/26/2022 16:16:33 04/27/2022 16:13:20 Obesity 819330947 E66.9 BMI is 39.8. she has been advised to watch her low salt diet, exercise and lose some weight. Smoker 21139040 F17.200 Not a smoker. Essential hypertension 71595327 I10 Low salt diet.Discu ssed with patient, went to ER for hypertensi on, but nerve got medication . As 04-26-2022 . Her blood pressure is 136/80. will refill med. Swelling of left foot 76 8625501 M79.89 Will cmp, bnp. and doppler study Family his tory of diabetes mellitus type 2 036596974 Z83.3 Not type 2 DM with normal A!c to be 5.6%. patient informed. Hypertensive disorder 38 451788 I10 Ran out the medication s. will resume, and monitor blood pressure. Avoid NSAID or OTC decongesta nt, on low salt diet.Blood pressure 156/140 mm Hg. Discussed with patient, today 05-18-2021 , she agreed to have higher dose of current medication s and monitoring blood pressure at home, also she can go to ER any time for any concern [id number] MD Jaxson Quinteros (Adult Med) [address] [place] [phone] 12/29/2022 16:57:48 12/30/2022 15:40:40 Abnormal uterine bleeding [id number] 9100 N93.9 Will do works up of anemia . also she is under the care of her CAN COVERER. Administra tion of diphtheria, pertussis, and tetanus vaccine 511544252 Z23 She [id number] 12-29-22. HIV screen ing declined [id number] 67517 Z53.20 She declined 12-29-22. [id number] MD Jaxson Mercer (Adult Med) [address] [place] [address] [phone] 02/27/2024 11:41:02 03/01/2024 13:10:20 Essential hypertension 95633146 I10 OK in ED 6 weeks ago. 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 Increase losartan to BID [id number] MD Jaxson Mercer (Adult Med) [address] [place] [address] [phone] 04/25/2024 15:28:41 04/26/2024 15:37:55 Morbid obesity 817532114 E66.01 Essential hypertension 58622936 I10 Still poorly controlled . Stop losartan. Add CCB [id number] [facility] [address] [place] [address] [phone] 06/17/2024 16:26:21 06/18/2024 14:25:52 Essential hypertension 22036373 I10 Improved. Will double diltiazem Pre-surger y evaluation 591848458 Z01.818 Medically cleared for dental surgery Morbid obesity 145625532 E66.01 [id number] MD Jaxson Mercer (Adult Med) [address] [place] [address] [phone] 07/08/2024 16:20:55 07/11/2024 14:20:58 Blood pressure taking 84370953 Z01.30 Health Concerns Section Related Observation LastModified by Organization Detai ls LastModified Time None Recorded Concern Status LastModified by Organization Details LastModified Time None Recorded Advance Directives Directive None Recorded Payers Encounter Date Sequence Insurance Name Policy Number Policy Lou Covered Member ID Lou Member ID Guarantor Name 02/27/2024 1 [place] [id number] Dalton Kruger [id number] Dalton rKuger 02/27/2024 2 [place] [facility] OF PUBLIC AID Tonisa Slick [id number] Tonisa Slick 03/25/2024 2 [place] [facility] OF PUBLIC AID Tonisa Slick [id number] Tonisa Slick 04/25/2024 1 [facility] (MEDICAID HMO) [id number] Tonisa Slick [id number] Tonisa Slick 06/17/2024 1 [facility] (MEDICAID HMO) [id number] 0003 Tonisa Slick [id number] Tonisa Slick 07/08/2024 1 [facility] (MEDICAID HMO) [id number] 0003 Tonisa Slick [id number] Tonisa Slick Notes Date Note Type Note Provider Name and Address Organization Details Recorded Time 02/27/2024 text/html ED f/u for abdom inal pain. Was admitted for observation six weeks ago. Noted to have enlarged uterus, microcytic anemia and leucocytosis, and lymphadenopathy felt to be reactive. She does have migraine headaches. Chaparrita Queen MD Attn: [address] [place], [address], [facility] 02/27/2024 12:39:20 04/25/2024 text/html Here for BP f/u. She has been compliant with her meds. she denies dizziness. Chaparrita Queen MD Attn: [address] [place], [address], [facility] 04/25/2024 16:35:58 06/17/2024 text/html Here for BP rech doris. Tolerating medication well Chaparrita Queen MD Attn: [address] [facility], [place], [address], [facility] 06/17/2024 18:15:58 OBGyn Episode No OBEpisode recorded.
== END 2024-08-19 10:20 | disposition home or self-care (01) ==
LOC: ANHSURGERY 10:22
PROVIDERS: PCP Internal Medicine Gastroenterology; Visit Provider Student in an Organized Health Care Education/Training Program
DX: N93.9 Abnormal uterine and vaginal bleeding, unspecified (principal); I10 Essential (primary) hypertension; R94.31 Abnormal electrocardiogram [ECG] [EKG]
CPT/HCPCS: 36415; 85027; 86850; 86900; 86901; 93005